=== PATIENT | female | born 1950 | race Caucasian/White ===

== ENCOUNTER → 2017-10-02 07:09 | Outpatient (CLI) | payer OTHER, SELFPAY ==
[2017-10-02 07:39] LABS: BUN Creatinine Ratio 24.3 (6-22); Blood Urea Nitrogen 17 mg/dL (7-17); Calcium 9.3 mg/dL (8.4-10.2); Carbon Dioxide 26 mmol/L (22-32); Chloride 106 mmol/L (98-107); Cholesterol 236 mg/dL (140-199); Estimated Glomerular Filt Rate > 60.0 mL/min (>60); Glucose 94 mg/dL (80-110); HDL Cholesterol 59 mg/dL (40-60); HEMOLYSIS 16 (0-50); LDL Cholesterol Calculated 156 mg/dL (<100); Potassium 4.1 mmol/L (3.4-5.1); Sodium 145 mmol/L (137-145); Triglycerides 105 mg/dL (35-150)
[2017-10-02 08:11] LABS: TSH w/ Reflex to FT4 0.84 uIU/mL (0.47-4.68)
== END ==
PROVIDERS: PCP Family Medicine; Visit Provider Family Medicine
DX: M85.80 Other specified disorders of bone density and structure, unspecified site (principal); E03.9 Hypothyroidism, unspecified
CPT/HCPCS: 36415; 80048; 80061; 84443

== ENCOUNTER 2018-01-19 13:03 | Emergency (ER) | payer OTHER, SELFPAY ==
[2018-01-19] VITALS (17 sets, daily range): BP systolic 138–216; BP diastolic 60–107; PULSE 62–82; RESP 15–21; TEMP 36.8; O2SAT 95–100; BMI 25.7
--- NOTE | 2018-01-19 13:12 | ED_ITS ---
HPI - Chest Pain General Chief Complaint: Chest Pain Stated Complaint: elevated blood pressure Time Seen by Provider: 01/19/18 13:11 Source: patient Mode of arrival: ambulatory Limitations: no limitations History of Present Illness HPI narrative: Patient is an otherwise healthy 67-year-old female here for evaluation of not feeling well. She also complains of a chest fullness. Also complaining of an episode of what she thought was going to be tunnel vision. She had no loss of consciousness. She also has a small vague headache. All of her symptoms started this morning. She has not tried anything for prior to arrival. She is hypothyroid and has not had a change in her Synthroid. Patient denies a history of hypertension. Related Data Previous Rx's Medication Instructions Recorded levothyroxine [Synthroid] 88 mcg PO QAM #90 tab 11/24/17 Allergies Allergy/AdvReac Type Severity Reaction Status Date / Time wheat Allergy Mild GI UPSET, Verified 01/19/18 13:11 FACIAL SWELLING codeine AdvReac Intermediate SYNCOPE Verified 01/19/18 13:11 Review of Systems Constitutional Reports fatigue, Denies fever(s), Reports headache(s) and Reports lethargy Eyes Reports blurry vision, Reports change in vision, Denies loss of vision, Denies photophobia, Denies spots in vision and Reports tunnel vision ENT Ears, Nose, Mouth, and Throat: Denies vertigo, Denies dizziness, Reports headache(s), Denies hoarseness, Denies lip swelling and Denies disequilibrium Cardiovascular Denies chest pain, Denies chest pain with activity, Denies syncope, Denies rapid heart rate, Denies edema, Denies palpitations and Denies dyspnea Comments: Chest fullness Respiratory Denies cough and Denies dyspnea Gastrointestinal Gastrointestinal: Denies abdominal pain, Denies diarrhea, Denies nausea and Denies vomiting Musculoskeletal Denies abnormal gait, Denies myalgias and Denies arthralgias Integumentary/Breasts Denies lesions and Denies rash Neurologic Denies abnormal speech, Denies abnormal gait, Denies confusion, Denies vertigo, Denies dizziness, Denies syncope, Reports headache(s), Denies focal weakness, Denies loss of vision, Denies sensory deficit, Denies paresthesias and Denies disequilibrium Psychiatric Denies confusion Endocrine Reports fatigue and Denies palpitations Hematologic/Lymphatic Denies easy bleeding and Denies easy bruising Allergic/Immunologic Denies lip swelling [facility] Medical History Osteopenia after menopause (Chronic) Tinnitus (Chronic 1974) Osteoarthritis (Chronic 11/11/04) Meniere's disease, unspecified (Chronic 08/07/14) Sensorineural hearing loss, unspecified (Chronic 02/13/12) Tubular adenoma of colon (Resolved 12/26/14) Acquired hypothyroidism (Chronic 01/25/15) Actinic keratosis of right cheek (Resolved 01/25/15) Atrophic vulvovaginitis (Chronic 01/25/15) Actinic keratosis treated with topical fluorouracil (5FU) (Resolved 09/27/15) Migraines (Chronic ~1974) Seasonal affective disorder (Chronic ~1974) Actinic keratosis (Resolved 1966) Chicken pox (Resolved ~1954) Foot fracture (Resolved 1961) Measles (Resolved ~1956) [place] fever (Resolved ~1958) Surgical History Anesthesia (Resolved) Status post biopsy (Resolved 12/26/14) Status post colonoscopy (Resolved 12/26/14) Family History Sister Age: 70 Breast cancer Father No problems noted. Grandmother No problems noted. Mother Colon cancer Grandfather No problems noted. Grandmother No problems noted. Social History Smoking Status: Never smoker Exam Initial Vital Signs Initial Vital Signs: Vital Signs Temperature 98.3 F 01/19/18 13:11 Pulse Rate 78 01/19/18 13:11 Respiratory Rate 20 01/19/18 13:11 Blood Pressure 216/92 H 01/19/18 13:11 Pulse Oximetry 100 01/19/18 13:11 Const General: cooperative, healthy appearing, comfortable, well developed, well groomed and No acute distress Orientation: alert, awake and oriented x3 HENMT Head: normal to inspection and normocephalic Ears: hearing grossly normal bilaterally Nose: external nose normal Resp Effort & Inspection: normal respiratory effort Auscultation: clear to auscultation bilaterally Cardio Rate: regular rate Rhythm: regular rhythm Pulses: radial pulses not present GI Inspection: non-distended Palpation: soft, No firm and No tender Back/Spine/Pelvis Back: No CVA tenderness Cervical Spine: cervical ROM normal and No pain with cervical ROM Thoracic/Lumbar Spine: thoracic and lumbar spine normal to inspection Skin Lesions: no lesions Rashes: no rashes Neuro General: alert, awake and oriented x3 Cranial Nerves: CN's II-XI intact bilaterally Cognition: normal cognition Speech: speech normal Motor: muscle tone normal throughout Sensory Exam: no sensory deficits noted Extrem General: normal to inspection and capillary refill normal Psych Appearance: grossly normal and well kempt Course Orders Ordered: ED Orders 01/19/18 13:05 EKG-12 Lead Stat 01/19/18 13:13 XR chest 1V Stat 01/19/18 13:36 B Type Natriuretic Peptide Stat Complete Blood Count AUTO DIFF Stat Comprehensive Metabolic Panel Stat Lipase Stat Partial Thromboplastin Time Stat Prothrombin Time INR Stat Troponin & CK Cardiac Panel Stat 01/19/18 14:01 CT angio chest PE protocol Stat CT head/brain wo con Stat 01/19/18 15:31 EKG-12 Lead Stat 01/19/18 15:43 Troponin I Stat Discontinued Medications Aspirin (Aspirin Chew) 324 mg PO NOW ONE Stop: 01/19/18 13:14 Last Admin: 01/19/18 13:41 Dose: Not Given Aspirin (Aspirin Chew) 324 mg PO NOW ONE Stop: 01/19/18 13:14 Last Admin: 01/19/18 14:55 Dose: 324 mg Nitroglycerin (Nitrostat) 0.4 mg SL [id number] PRN PRN Reason: Chest Pain Last Admin: 01/19/18 14:27 Dose: 0.4 mg Admin: 01/19/18 14:00 Dose: 0.4 mg Admin: 01/19/18 13:45 Dose: 0.4 mg Vital Signs - 8 hr 01/19/18 13:11 01/19/18 13:45 01/19/18 13:54 Temperature 98.3 F Pulse Rate 78 65 65 Respiratory Rate 20 16 Blood Pressure 216/92 H 201/107 H Blood Pressure [Left Wrist] 201/105 H Pulse Oximetry 100 100 01/19/18 13:57 01/19/18 14:00 01/19/18 14:25 Temperature Pulse Rate 68 62 65 Respiratory Rate Blood Pressure 153/64 H 153/64 H 154/60 H Blood Pressure [Left Wrist] Pulse Oximetry 01/19/18 14:27 01/19/18 14:51 01/19/18 15:04 Temperature Pulse Rate 63 65 68 Respiratory Rate 18 Blood Pressure 153/93 H 138/78 Blood Pressure [Left Wrist] 138/68 Pulse Oximetry 100 01/19/18 15:30 01/19/18 16:28 01/19/18 17:10 Temperature Pulse Rate 70 65 80 Respiratory Rate 15 16 15 Blood Pressure Blood Pressure [Left Wrist] 140/81 152/70 H 193/86 H Pulse Oximetry 100 100 100 01/19/18 17:30 Temperature Pulse Rate 74 Respiratory Rate 15 Blood Pressure Blood Pressure [Left Wrist] 172/88 H Pulse Oximetry 100 MDM - Chest Pain Lab Data Attestation: I reviewed the patient's lab results. Result diagrams: 01/19/18 13:36 01/19/18 13:36 Lab Results 01/19/18 01/19/18 01/19/18 Range/Units 13:36 13:36 13:36 WBC 6.1 (4.5-11.0) X10^3/uL RBC 4.91 (4.0-5.2) X10^6/uL Hgb 15.2 (12.0-16.0) g/dL Hct 43.9 (36-46) % MCV 89.3 (80-100) fL MCH 30.9 (26-34) PG MCHC 34.6 (30-36) % RDW 12.9 (11.6-14.8) % Plt Count 201 (150-400) X10^3/uL Neut % (Auto) 62.9 (50-75) % Lymph % (Auto) 28.6 (25-40) % Benzie % (Auto) 5.6 (3-14) % Eos % (Auto) 1.8 L (2-4) % Baso % (Auto) 1.1 (0-2) % Neut # (Auto) 3800 (8791-4885) /uL PT 10.4 (10.1-12.7) SECONDS INR 1.0 (0.9-1.3) APTT 28 (26.4-36.2) SECONDS Sodium 144 (137-145) mmol/L Potassium 4.0 (3.4-5.1) mmol/L Chloride 106 (98-107) mmol/L Carbon Dioxide 27 (22-32) mmol/L BUN 18 H (7-17) mg/dL Creatinine 0.90 (0.52-1.04) mg/dL Estimated GFR > 60.0 (>60) mL/min BUN/Creatinine Ratio 20.0 (6-22) Glucose 92 (80-110) mg/dL Calcium 9.8 (8.4-10.2) mg/dL Total Bilirubin 0.4 (0.2-1.3) mg/dL AST 31 (14-36) IU/L ALT 29 (9-52) IU/L Alkaline Phosphatase 64 (38-126) U/L Total Creatine Kinase 74 (30-135) U/L CK-MB (CK-2) TNP CK-MB (CK-2) Rel Index TNP Troponin I < 0.012 (0.01-0.034) ng/mL B-Natriuretic Peptide < 100.0 (<100) Total Protein 7.5 (6.3-8.2) g/dL Albumin 4.5 (3.5-5.0) g/dL Globulin 3.0 (1.7-4.1) g/dL Albumin/Globulin Ratio 1.5 (1.0-2.8) Lipase 96 (23-300) U/L 01/19/18 Range/Units 15:43 WBC (4.5-11.0) X10^3/uL RBC (4.0-5.2) X10^6/uL Hgb (12.0-16.0) g/dL Hct (36-46) % MCV (80-100) fL MCH (26-34) PG MCHC (30-36) % RDW (11.6-14.8) % Plt Count (150-400) X10^3/uL Neut % (Auto) (50-75) % Lymph % (Auto) (25-40) % Benzie % (Auto) (3-14) % Eos % (Auto) (2-4) % Baso % (Auto) (0-2) % Neut # (Auto) (9839-5330) /uL PT (10.1-12.7) SECONDS INR (0.9-1.3) APTT (26.4-36.2) SECONDS Sodium (137-145) mmol/L Potassium (3.4-5.1) mmol/L Chloride (98-107) mmol/L Carbon Dioxide (22-32) mmol/L BUN (7-17) mg/dL Creatinine (0.52-1.04) mg/dL Estimated GFR (>60) mL/min BUN/Creatinine Ratio (6-22) Glucose (80-110) mg/dL Calcium (8.4-10.2) mg/dL Total Bilirubin (0.2-1.3) mg/dL AST (14-36) IU/L ALT (9-52) IU/L Alkaline Phosphatase (38-126) U/L Total Creatine Kinase (30-135) U/L CK-MB (CK-2) CK-MB (CK-2) Rel Index Troponin I < 0.012 (0.01-0.034) ng/mL B-Natriuretic Peptide (<100) Total Protein (6.3-8.2) g/dL Albumin (3.5-5.0) g/dL Globulin (1.7-4.1) g/dL Albumin/Globulin Ratio (1.0-2.8) Lipase (23-300) U/L Point of Care Testing Glucose POC 84 Imaging Data Chest x-ray: Radiologist's impression: [place] [address] XRay Report Signed Patient: Bharati Cates JMR#: [id number] : 9Acct:[id number] Age/Sex: 67 / FDate of Service: 01/19/18 Loc: ED Accession Number: [id number] Procedure: XR chest 1V Ordering Provider: Michael Parker D.O. PROCEDURE: XR CHEST 1V INDICATIONS: chest pain TECHNIQUE: One view of the chest was acquired. COMPARISON: None. FINDINGS: Surgical changes and devices: None. Lungs and pleura: No pleural effusions or pneumothorax. Lungs are clear. Mediastinum: Mediastinal contours appear normal. Heart size is normal. Bones and chest wall: No suspicious bony lesions. Overlying soft tissues appear unremarkable. IMPRESSION: No acute pulmonary process. Dictated by: Meagan Marshall M.D. on 01/19/2018 at 13:54 Approved by: Meagan Marshall M.D. on 01/19/2018 at 13:54 CTA chest: Radiologist's impression: [place] [id number] CT Scan Report Signed Patient: Bharati Cates R#: [id number] : 9Acct:[id number] Age/Sex: 67 / FDate of Service: 01/19/18 Loc: ED Accession Number: [id number] Procedure: CT angio chest PE protocol Ordering Provider: Michael Parker D.O. PROCEDURE: CT ANGIO CHEST PE PROTOCOL INDICATIONS: Chest pain, shortness of breath, TECHNIQUE: After the administration of intravenous contrast, 2 mm thick sections acquired from the pulmonary apices to the posterior costophrenic angles. 3-dimensional maximum intensity projection (MIP) coronal and sagittal reformats were then acquired through the thorax. For radiation dose reduction, the following was used: automated exposure control, adjustment of mA and/or kV according to patient size. COMPARISON: None. FINDINGS: Image quality: Excellent. Pulmonary arteries: Pulmonary arteries are normal in size, and demonstrate no intraluminal filling defects to suggest central pulmonary embolism. Lungs and pleura: Atelectasis noted in the dependent portion of the lung bases. Lungs are otherwise clear. No pleural effusions or pneumothorax. Central and peripheral airways are patent. Mediastinum: Heart size is normal, without pericardial effusion. No mediastinal or hilar adenopathy. Thoracic aorta is normal in caliber and enhancement. Esophagus is normal in caliber. Small hiatal hernia. Bones and chest wall: No suspicious bony lesions. Ribs and thoracic spine appear intact throughout. Spine degenerative disc disease and facet arthropathy.No axillary or supraclavicular adenopathy. Abdomen: Visualized upper abdominal solid organs appear normal in the early arterial phase of enhancement. IMPRESSION: 1. No pulmonary embolus. 2. No lung consolidation. 3. No pleural effusions. Dictated by: Chelita Lerner MD, PhD on 01/19/2018 at 14:17 Approved by: Chelita Lerner MD, PhD on 01/19/2018 at 14:23 CT scan - head: Radiologist's impression: [address] [address] [address] Scan Report Signed Patient: Bharati Cates R#: [id number] : 9Acct:[id number] Age/Sex: 67 / FDate of Service: 01/19/18 Loc: ED Accession Number: [id number] Procedure: CT head/brain wo con Ordering Provider: Michael Parker D.O. PROCEDURE: CT HEAD/BRAIN WO CON INDICATIONS: vision changes TECHNIQUE: Noncontrast 4.5 mm thick angled axial sections acquired from the foramen magnum to the vertex, with coronal and sagittal reformats. For radiation dose reduction, the following was used: automated exposure control, adjustment of mA and/or kV according to patient size. COMPARISON: None. FINDINGS: Image quality: Excellent. CSF spaces: Basal cisterns are patent. No extra-axial fluid collections. The ventricles are symmetric in size and shape. Brain: No intracranial bleeds or masses. There is cerebral volume loss for age , with resultant ventricular and sulcal prominence. There are periventricular and deep white matter chronic small vessel ischemic changes. Hypodensity noted in the anterior limb of the right internal capsule There is intracranial internal carotid artery and vertebral artery atherosclerosis. Skull and face: Calvarium and visualized facial bones appear intact, without suspicious lesions. Sinuses: Visualized sinuses and mastoids are clear. IMPRESSION: 1. Small hypodensity in the anterior limb of the right internal capsule compatible with subacute versus chronic lacunar infarct. Recommend MRI of the brain for further evaluation when clinically feasible. 2. No intracranial hemorrhage. Dictated by: Chelita Lerner MD, PhD on 01/19/2018 at 14:12 Approved by: Chelita Lerner MD, PhD on 01/19/2018 at 14:17 ECG Data Attestation: I personally reviewed and interpreted this ECG as follows: Prior ECG tracings: not available for review Interpretation: EKG time 1309 hr Sinus rhythm Ventricular rate is [address] depression V4 V5 V6 Normal QRS EKG timed 1538 hr Patient asymptomatic Sinus rhythm Ventricular rate is 61 Left axis deviation No ST T wave changes MDM Narrative Medical decision making narrative: Patient arrived hypertension. She has never had hypertension before. She also was complaining of vision disturbances. There was no objective neurologic findings on her exam. She was given an aspirin. She was given 3 sublingual nitros which decreased her hypertension which seemed to resolve all of her symptoms except for very minor headache and ? blurry? vision. She did initially have ST depressions laterally which resolved when her symptoms resolved. Initial troponin was negative. Repeat troponin was negative. Head CT has a density which could be subacute versus chronic. Given the fact that her symptoms have almost completely resolved she is not a tPA candidate. I discussed the case with Malcolm who found an accepting physician at [facility]. Accepting physician is . I did not specifically talk with the admitting provider regarding this patient. Patient was informed of the need for transport to obtain an MRI of her head and also further provocative testing of her heart. The patient expressed understanding and agreement. Patient is stable for transport. Discharge Plan Departure Patient Disposition: [facility] Clinical Impression: Hypertension, Atypical chest pain, Blurring of vision, Headache Prescriptions: No Action levothyroxine [Synthroid] 88 mcg tablet 88 mcg PO QAM Qty: 90 RF: 3
[2018-01-19 13:42] LABS: Add Manual Diff / Slide Review NO; Basophils Percent Auto 1.1 % (0-2); Eosinophils Percent Auto 1.8 % (2-4); Hematocrit 43.9 % (36-46); Hemoglobin 15.2 g/dL (12.0-16.0); Lymphocytes Percent Auto 28.6 % (25-40); Mean Corpuscular HGB Conc 34.6 % (30-36); Mean Corpuscular Hemoglobin 30.9 PG (26-34); Mean Corpuscular Volume 89.3 fL (80-100); Monocytes Percent Auto 5.6 % (3-14); Neutrophils Absolute Auto 3800 /uL (3000-5900); Neutrophils Percent Auto 62.9 % (50-75); Platelet Count 201 X10^3/uL (150-400); Red Blood Cell Count 4.91 X10^6/uL (4.0-5.2); Red Cell Distribution Width 12.9 % (11.6-14.8); White Blood Cell Count 6.1 X10^3/uL (4.5-11.0)
[2018-01-19] MEDS: NITROGLYCERIN 0.4 MG SL TAB SL ×3 (13:45→14:27)
[2018-01-19 13:49] LABS: Prothrombin Time 10.4 SECONDS (10.1-12.7)
[2018-01-19 13:51] LABS: PTT Partial Thromboplastin Tim 28 SECONDS (26.4-36.2)
--- NOTE | 2018-01-19 13:53 | PC.NURSE ---
Patient also c/o headache with nearing vision;
[2018-01-19 13:56] LABS: Alanine Aminotransferase 29 IU/L (9-52); Albumin 4.5 g/dL (3.5-5.0); Albumin Globulin Ratio 1.5 (1.0-2.8); Alkaline Phosphatase 64 U/L (38-126); Aspartate Aminotransferase 31 IU/L (14-36); Bilirubin Total 0.4 mg/dL (0.2-1.3); Blood Urea Nitrogen 18 mg/dL (7-17); Calcium 9.8 mg/dL (8.4-10.2); Carbon Dioxide 27 mmol/L (22-32); Chloride 106 mmol/L (98-107); Creatine Kinase 74 U/L (30-135); Estimated Glomerular Filt Rate > 60.0 mL/min (>60); Glucose 92 mg/dL (80-110); HEMOLYSIS < 15 (0-50); Lipase 96 U/L (23-300); Sodium 144 mmol/L (137-145); Total Protein 7.5 g/dL (6.3-8.2)
--- NOTE | 2018-01-19 14:01 | DI.CT.S_ITS ---
PROCEDURE: CT HEAD/BRAIN WO CON INDICATIONS: vision changes TECHNIQUE: Noncontrast 4.5 mm thick angled axial sections acquired from the foramen magnum to the vertex, with coronal and sagittal reformats. For radiation dose reduction, the following was used: automated exposure control, adjustment of mA and/or kV according to patient size. COMPARISON: None. FINDINGS: Image quality: Excellent. CSF spaces: Basal cisterns are patent. No extra-axial fluid collections. The ventricles are symmetric in size and shape. Brain: No intracranial bleeds or masses. There is cerebral volume loss for age, with resultant ventricular and sulcal prominence. There are periventricular and deep white matter chronic small vessel ischemic changes. Hypodensity noted in the anterior limb of the right internal capsule There is intracranial internal carotid artery and vertebral artery atherosclerosis. Skull and face: Calvarium and visualized facial bones appear intact, without suspicious lesions. Sinuses: Visualized sinuses and mastoids are clear. IMPRESSION: 1. Small hypodensity in the anterior limb of the right internal capsule compatible with subacute versus chronic lacunar infarct. Recommend MRI of the brain for further evaluation when clinically feasible. 2. No intracranial hemorrhage. Dictated by: Chelita Lerner MD, PhD on 01/19/2018 at 14:12 Approved by: Chelita Lerner MD, PhD on 01/19/2018 at 14:17
--- NOTE | 2018-01-19 14:01 | DI.CT.S_ITS ---
PROCEDURE: CT ANGIO CHEST PE PROTOCOL INDICATIONS: Chest pain, shortness of breath, TECHNIQUE: After the administration of intravenous contrast, 2 mm thick sections acquired from the pulmonary apices to the posterior costophrenic angles. 3-dimensional maximum intensity projection (MIP) coronal and sagittal reformats were then acquired through the thorax. For radiation dose reduction, the following was used: automated exposure control, adjustment of mA and/or kV according to patient size. COMPARISON: None. FINDINGS: Image quality: Excellent. Pulmonary arteries: Pulmonary arteries are normal in size, and demonstrate no intraluminal filling defects to suggest central pulmonary embolism. Lungs and pleura: Atelectasis noted in the dependent portion of the lung bases. Lungs are otherwise clear. No pleural effusions or pneumothorax. Central and peripheral airways are patent. Mediastinum: Heart size is normal, without pericardial effusion. No mediastinal or hilar adenopathy. Thoracic aorta is normal in caliber and enhancement. Esophagus is normal in caliber. Small hiatal hernia. Bones and chest wall: No suspicious bony lesions. Ribs and thoracic spine appear intact throughout. Spine degenerative disc disease and facet arthropathy.No axillary or supraclavicular adenopathy. Abdomen: Visualized upper abdominal solid organs appear normal in the early arterial phase of enhancement. IMPRESSION: 1. No pulmonary embolus. 2. No lung consolidation. 3. No pleural effusions. Dictated by: Chelita Lerner MD, PhD on 01/19/2018 at 14:17 Approved by: Chelita Lerner MD, PhD on 01/19/2018 at 14:23
[2018-01-19 14:08] LABS: B Type Natriuretic Peptide < 100.0 (<100)
[2018-01-19 14:09] LABS: Troponin I < 0.012 ng/mL (0.01-0.034)
[2018-01-19] MEDS: ASPIRIN 81 MG TAB 324 MG PO (14:55)
--- NOTE | 2018-01-19 15:03 | PC.NURSE ---
Continued to have nearing vision and mild blurred vision;
[2018-01-19 16:13] LABS: Troponin I < 0.012 ng/mL (0.01-0.034)
--- NOTE | 2018-01-19 18:39 | PC.NURSE ---
Blurred vision; Left sided headache;
== END 2018-01-19 21:53 | disposition short-term general hospital (02) ==
PROVIDERS: Emergency Provider Emergency Medicine; Family Provider Family Medicine; PCP Family Medicine
DX: I10 Essential (primary) hypertension (principal); H53.8 Other visual disturbances; R07.89 Other chest pain; R51 Headache
CPT/HCPCS: 36415; 70450; 71045; 71275; 80053; 82550; 82962; 83690; 83880; 84484; 85025; 85610; 85730; 93005; 99285; 99291; Q9967

== ENCOUNTER → 2018-10-26 07:36 | Outpatient (CLI) | payer OTHER, SELFPAY ==
[2018-10-26 08:32] LABS: Alanine Aminotransferase 22 IU/L (9-52); Albumin 4.2 g/dL (3.5-5.0); Albumin Globulin Ratio 1.4 (1.0-2.8); Alkaline Phosphatase 65 U/L (38-126); Aspartate Aminotransferase 29 IU/L (14-36); BUN Creatinine Ratio 22.9 (6-22); Bilirubin Total 0.6 mg/dL (0.2-1.3); Blood Urea Nitrogen 16 mg/dL (7-17); Calcium 9.5 mg/dL (8.4-10.2); Carbon Dioxide 28 mmol/L (22-32); Chloride 107 mmol/L (98-107); Cholesterol 186 mg/dL (140-199); Estimated Glomerular Filt Rate > 60.0 mL/min (>60); Globulin 2.9 g/dL (1.7-4.1); Glucose 92 mg/dL (80-110); HDL Cholesterol 53 mg/dL (40-60); HEMOLYSIS < 15 (0-50); LDL Cholesterol Calculated 110 mg/dL (<100); Potassium 4.1 mmol/L (3.4-5.1); Sodium 142 mmol/L (137-145); Total Protein 7.1 g/dL (6.3-8.2); Triglycerides 116 mg/dL (35-150)
[2018-10-26 09:31] LABS: TSH w/ Reflex to FT4 0.09 uIU/mL (0.47-4.68)
[2018-10-26 10:09] LABS: Free T4, Direct Thyroxine 1.22 ng/dL (0.78-2.19)
[2018-10-30 14:54] LABS: Calcium 9.6 mg/dL (8.6-10.4); Parathyroid Hormone, Intact 55 pg/mL (14-64)
== END ==
PROVIDERS: PCP Family Medicine; Visit Provider Family Medicine
DX: Z84.89 Family history of other specified conditions (principal); E78.5 Hyperlipidemia, unspecified; E03.9 Hypothyroidism, unspecified
CPT/HCPCS: 36415; 80053; 80061; 83970; 84439; 84443

== ENCOUNTER → 2018-11-03 14:36 | Outpatient (CLI) | payer OTHER, SELFPAY ==
--- NOTE | 2018-11-03 14:38 | DI.MG.S_ITS ---
BILATERAL DIGITAL SCREENING MAMMOGRAM 3D/2D WITH CAD: 11/03/2018 CLINICAL: Routine screening. Family history of breast cancer. Comparison is made to exams dated: 10/22/2016 mammogram, 10/22/2015 mammogram, and 09/07/2008 mammogram - [facility]. The tissue of both breasts is extremely dense, which lowers the sensitivity of mammography. Current study was also evaluated with a Computer Aided Detection (CAD) system. No significant masses, calcifications, or other findings are seen in either breast. There has been no significant interval change. IMPRESSION: NEGATIVE There is no mammographic evidence of malignancy. A 1 year screening mammogram is recommended. This exam was interpreted at Station ID: [id number]. NOTE: For mammograms, a report in lay terms will be sent to the patient. Approximately 15% of breast malignancies will not be visualized mammographically. In the management of a palpable breast mass, a negative mammogram must not discourage biopsy of a clinically suspicious lesion. Electronically Signed By: Serina barcenas/jonathan:11/03/2018 15:51:03 letter sent: Normal Exam ACR BI-RADS Category 1: Negative [id number]
== END ==
PROVIDERS: PCP Family Medicine; Visit Provider Family Medicine
DX: Z12.31 Encounter for screening mammogram for malignant neoplasm of breast (principal); M85.851 Other specified disorders of bone density and structure, right thigh; Z78.0 Asymptomatic menopausal state; E07.9 Disorder of thyroid, unspecified; Z80.3 Family history of malignant neoplasm of breast
CPT/HCPCS: 77063; 77067; 77080

== ENCOUNTER → 2019-10-06 07:59 | Outpatient (CLI) | payer OTHER, SELFPAY ==
[2019-10-06 09:00] LABS: Alanine Aminotransferase 23 IU/L (<35); Albumin 4.5 g/dL (3.5-5.0); Albumin Globulin Ratio 1.5 (1.0-2.8); Alkaline Phosphatase 71 U/L (38-126); Aspartate Aminotransferase 31 IU/L (14-36); BUN Creatinine Ratio 23.5 (6-22); Bilirubin Total 0.5 mg/dL (0.2-1.3); Blood Urea Nitrogen 19 mg/dL (7-17); Calcium 9.4 mg/dL (8.4-10.2); Carbon Dioxide 24 mmol/L (22-32); Chloride 108 mmol/L (98-107); Cholesterol 189 mg/dL (140-199); Estimated Glomerular Filt Rate > 60.0 mL/min (>60); Glucose 100 mg/dL (80-110); HDL Cholesterol 57 mg/dL (40-60); HEMOLYSIS 16 (0-50); LDL Cholesterol Calculated 110 mg/dL (<100); Potassium 4.3 mmol/L (3.4-5.1); Sodium 139 mmol/L (137-145); Total Protein 7.5 g/dL (6.3-8.2); Triglycerides 108 mg/dL (35-150)
[2019-10-06 09:56] LABS: Free T3, Triiodothyronine Free 2.98 pg/mL (2.77-5.27); Free T4, Direct Thyroxine 1.23 ng/dL (0.78-2.19)
[2019-10-06 10:09] LABS: Thyroid Stimulating Hormone 1.83 uIU/mL (0.47-4.68)
== END ==
PROVIDERS: PCP Family Medicine; Referring Provider Family Medicine; Visit Provider Family Medicine
DX: E03.9 Hypothyroidism, unspecified (principal); E78.5 Hyperlipidemia, unspecified; I10 Essential (primary) hypertension
CPT/HCPCS: 36415; 80053; 80061; 84439; 84443; 84481

== ENCOUNTER → 2019-12-02 17:11 | Outpatient (CLI) | payer OTHER, SELFPAY ==
[2019-12-02 18:30] LABS: C-Reactive Protein Quant < 0.5 mg/dL (<1.0)
[2019-12-02 18:36] LABS: Erythrocyte Sedimentation Rate 4 MM/HR (0-20)
== END ==
PROVIDERS: PCP Family Medicine; Referring Provider Family Medicine; Visit Provider Family Medicine
DX: G45.3 Amaurosis fugax (principal)
CPT/HCPCS: 36415; 85651; 86140

== ENCOUNTER → 2019-12-29 08:12 | Outpatient (CLI) | payer OTHER, SELFPAY ==
--- NOTE | 2019-12-29 08:15 | DI.US.S_ITS ---
PROCEDURE: US CAROTID DOPPLER BI INDICATIONS: DIZZINESS TECHNIQUE: Color and pulse Doppler interrogation was performed of both carotid systems, with image documentation and velocity measurements. COMPARISON: None. FINDINGS: Stenosis calculations are based on SRU (Society of Radiologists in Ultrasound) criteria. The flow velocities and the arterial waveforms are normal within both carotid arterial systems. Atherosclerotic plaque is seen on both sides. The estimated degree of internal carotid artery stenosis is less than 50%. Antegrade flow is confirmed within both vertebral arteries. IMPRESSION: No hemodynamically significant stenosis is seen. Dictated by: Praneeth Morin M.D. on 12/29/2019 at 8:50 Approved by: Praneeth Morin M.D. on 12/29/2019 at 8:50
== END ==
PROVIDERS: PCP Family Medicine; Referring Provider Family Medicine; Visit Provider Family Medicine
DX: G45.3 Amaurosis fugax (principal); R42 Dizziness and giddiness
CPT/HCPCS: 93880

== ENCOUNTER → 2020-01-20 08:03 | Outpatient (CLI) | payer OTHER, SELFPAY ==
--- NOTE | 2020-01-20 08:05 | DI.MRI.S_ITS ---
PROCEDURE: MR BRAIN (IAC) WWO CON INDICATIONS: vision loss, tia? TECHNIQUE: Noncontrast sagittal T1 spin echo, axial FLAIR, axial gradient echo, axial diffusion and ADC through the brain. Axial thin-slice 3D CISS, coronal TruFISP, axial T1 spin echo with fat saturation through the internal auditory canals. After the administration of contrast, thin slice axial and coronal T1 spin echo with fat saturation through the internal auditory canals, and axial T1 spin echo with fat saturation through the brain. COMPARISON: None. FINDINGS: Image quality: Excellent. Cerebellopontine angles: No cerebellopontine angle masses. Inner ear structures appear normally formed. No suspicious enhancement in the internal auditory canal or along the course of the 7th cranial nerve. CSF spaces: Ventricles are normal in size and shape. No extra-axial fluid collections. Basal cisterns are patent. There is mild, diffuse cerebral volume loss. There are mild periventricular and subcortical white matter chronic microvascular ischemic changes. Brain: No intracranial bleeds or mass effects. Camejo-white matter interface is intact. No abnormal intracranial enhancement. Diffusion weighted images demonstrate no acute ischemic insults. Brainstem appears normal. Normal intravascular flow voids are present. Skull and face: Calvarial marrow signal is normal. Orbits appear normal. Sinuses: Sinuses and mastoids are clear. IMPRESSION: 1. No evidence of vestibular schwannoma. 2. No acute intracranial disease process. 3. No areas of acute or chronic infarction. 4. Mild, diffuse cerebral volume loss. 5. Mild periventricular and subcortical white matter chronic microvascular ischemic changes. Dictated by: Chelita Lerner MD, PhD on 01/20/2020 at 11:42 Approved by: Chelita Lerner MD, PhD on 01/20/2020 at 11:52
== END ==
PROVIDERS: PCP Family Medicine; Referring Provider Family Medicine; Visit Provider Family Medicine
DX: G45.3 Amaurosis fugax (principal)
CPT/HCPCS: 70553

== ENCOUNTER → 2020-09-13 07:46 | Outpatient (CLI) | payer MEDICARE, OTHER, SELFPAY ==
[2020-09-13 08:12] LABS: Add Manual Diff / Slide Review NO; Basophils Absolute Auto 0 /uL (0-100); Basophils Percent Auto 0.8 % (0-2); Eosinophils Absolute Auto 200 /uL (0-450); Eosinophils Percent Auto 3.3 % (2-4); Lymphocytes Absolute Auto 1800 /uL (1100-4500); Lymphocytes Percent Auto 29.7 % (25-40); Mean Corpuscular HGB Conc 33.2 % (30-36); Mean Corpuscular Hemoglobin 30.5 PG (26-34); Mean Corpuscular Volume 91.8 fL (80-100); Monocytes Absolute Auto 400 /uL (0-900); Monocytes Percent Auto 6.3 % (3-14); Neutrophils Absolute Auto 3600 /uL (1500-7000); Neutrophils Percent Auto 59.9 % (50-75); Platelet Count 182 X10^3/uL (150-400); Red Blood Cell Count 4.58 X10^6/uL (4.0-5.2); Red Cell Distribution Width 13.5 % (11.6-14.8)
[2020-09-13 08:25] LABS: Alanine Aminotransferase 28 IU/L (<35); Albumin 4.2 g/dL (3.5-5.0); Albumin Globulin Ratio 1.5 (1.0-2.8); Alkaline Phosphatase 78 U/L (38-126); Aspartate Aminotransferase 38 IU/L (14-36); BUN Creatinine Ratio 26.3 (6-22); Bilirubin Total 0.4 mg/dL (0.2-1.3); Blood Urea Nitrogen 20 mg/dL (7-17); Calcium 9.5 mg/dL (8.4-10.2); Carbon Dioxide 27 mmol/L (22-32); Chloride 107 mmol/L (98-107); Estimated Glomerular Filt Rate > 60.0 mL/min (>60); Globulin 2.8 g/dL (1.7-4.1); Glucose 95 mg/dL (80-110); HEMOLYSIS < 15 (0-50); Potassium 4.4 mmol/L (3.4-5.1); Sodium 141 mmol/L (137-145)
[2020-09-13 08:55] LABS: TSH w/ Reflex to FT4 2.05 uIU/mL (0.47-4.68)
== END ==
PROVIDERS: PCP Family Medicine; Referring Provider Family Medicine; Visit Provider Family Medicine
DX: E03.9 Hypothyroidism, unspecified (principal); E78.5 Hyperlipidemia, unspecified; I10 Essential (primary) hypertension; R55 Syncope and collapse
CPT/HCPCS: 36415; 80053; 84443; 85025

== ENCOUNTER → 2020-09-19 09:37 | Outpatient (CLI) | payer MEDICARE, OTHER, SELFPAY ==
--- NOTE | 2020-10-24 09:57 | P.HOLT.S_ITS ---
[employer] Report Referral & Results Date Patient Seen: 09/19/20 Requesting provider: Essence Jha Indication: Syncope Duration of monitoring (days): 13 Diary information: There were 6 patient triggered events and 2 patient diary entries Patient triggered events were associated with (within 45 seconds) sinus rhythm, PACs, and SVT Patient diary events were associated with (within 45 seconds) sinus rhythm and SVT Data: Minimum sinus heart rate was 49 beats per minute at 03:53 on 09/29/2020 Maximum sinus heart rate was 125 beats per minute at 11:09 on 09/20/2020 Maximum overall heart rate was 182 beats per minute at 07:39 on 09/24/2020 during a 6 beat run of SVT Less than 1% of identified beats were ventricular or supraventricular ectopic in origin, which would classify them as rare. 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
== END ==
PROVIDERS: PCP Family Medicine; Referring Provider Family Medicine; Visit Provider Family Medicine
DX: R55 Syncope and collapse (principal)
CPT/HCPCS: 93246; 93248

== ENCOUNTER 2020-09-28 09:38 | Emergency (ER) | payer MEDICARE, OTHER, SELFPAY ==
[2020-09-28 09:47] VITALS: BP 196/92; PULSE 88; RESP 16; TEMP 36.9; O2SAT 100; BMI 25.0
--- NOTE | 2020-09-28 09:58 | ED_ITS ---
HPI - Extremity Injury (Lower) General Chief Complaint: Extremity Injury, Lower Stated Complaint: left leg swelling with pain Time Seen by Provider: 09/28/20 09:43 Source: patient Mode of arrival: Ambulatory Limitations: no limitations History of Present Illness HPI Narrative: Patient is a 70-year-old female who is here for evaluation of pain along her left calf for the past 4 days and swelling along her left ankle for the past 24 hours. Chest pain. No shortness of breath. She is wearing a Holter monitor secondary to prior issues with palpitations. She has never had a blood clot the past. She denies any trauma. Related Data Home Medications Medication Instructions Recorded Confirmed cholecalciferol (vitamin D3) 50 2,000 unit PO DAILY 01/25/18 09/10/20 mcg (2,000 unit) capsule doxylamine succinate 25 mg tablet 25 mg PO BEDTIME PRN 01/25/18 09/10/20 magnesium oxide 400 mg PO DAILY cap 01/25/18 09/10/20 vitamins-lipotropics tablet 1 tab PO DAILY 01/25/18 09/10/20 aspirin 81 mg tablet,delayed 81 mg PO DAILY 09/10/20 09/10/20 release Previous Rx's Medication Instructions Recorded tretinoin 0.05 % topical cream 1 applictn TOP BEDTIME #45 gram 02/03/20 amlodipine 5 mg tablet 5 mg PO DAILY #90 tab 05/18/20 simvastatin 5 mg tablet 5 mg PO BEDTIME #90 tab 05/21/20 levothyroxine 75 mcg tablet See Rx Instructions .ROUTE 06/25/20 .COMPLEX #180 tab Allergies Allergy/AdvReac Type Severity Reaction Status Date / Time wheat Allergy Mild GI UPSET, Verified 09/10/20 08:29 FACIAL SWELLING codeine AdvReac Intermediate SYNCOPE Verified 09/10/20 08:29 Review of Systems Constitutional Constitutional: Reports system reviewed and no additional complaints, except as documented Cardiovascular Cardiovascular: Denies chest pain and Denies dyspnea Respiratory Respiratory: Denies dyspnea Gastrointestinal Gastrointestinal: Reports system reviewed and no additional complaints, except as documented Musculoskeletal Musculoskeletal: Denies tingling Comments: Pain along the left calf and swelling along the left ankle Integumentary/Breasts Skin/Breast: Denies rash Neurologic Neurologic: Denies tingling Hematologic/Lymphatic On Anticoagulants: No Allergic/Immunologic Allergic/Immunologic: Reports system reviewed and no additional complaints, except as documented Patient History Medical History Acquired hypothyroidism (01/25/15) Actinic keratosis (1966) Actinic keratosis of right cheek (01/25/15) Actinic keratosis treated with topical fluorouracil (5FU) (09/27/15) 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) Chicken pox (~1954) Essential hypertension Family history of colon cancer Foot fracture (1961) Hyperlipidemia Measles (~1956) Meniere's disease, unspecified (08/07/14) Migraines (~1974) Osteoarthritis (11/11/04) Osteopenia after menopause [place] fever (~1958) Seasonal affective disorder (~1974) Seborrheic keratosis Sensorineural hearing loss, unspecified (02/13/12) Skin lesion Solar lentigo Sun-damaged skin Tinnitus (1974) Tubular adenoma of colon (12/26/14) Surgical History Anesthesia Status post biopsy (12/26/14) Status post colonoscopy (12/26/14) Family History (Updated 10/29/18 @ 10:49 by Essence Jha DO) Sister Age: 73 Breast cancer Parathyroid adenoma Hypercalcemia Father No problems noted. Grandmother No problems noted. Mother Colon cancer Grandfather No problems noted. Grandmother No problems noted. Social History Smoking Status: Never smoker Smoking Status: Never smoker alcohol intake frequency: a few times a week Substance Use Type: does not use Exam Initial Vital Signs Initial Vital Signs: Vital Signs Temperature 98.4 F 09/28/20 09:47 Pulse Rate 88 09/28/20 09:47 Respiratory Rate 16 09/28/20 09:47 Blood Pressure 196/92 H 09/28/20 09:47 Pulse Oximetry 100 09/28/20 09:47 Const General: cooperative and comfortable Limitations: mental status not altered HENMT Head: normal to inspection and normocephalic Cardio Pulses: dorsalis pedis present on the left Skin Lesions: no lesions Rashes: no rashes Neuro General: patient alert and patient awake Cognition: normal cognition Extrem General: capillary refill normal Other: Patient has no fullness behind the left knee. Has minimal tenderness along the left calf. Is slightly more swollen around the left ankle compared to the right Psych Appearance: grossly normal and well kempt Scores Wells' Criteria for DVT Active Cancer (Treatment within 6 months): No Bedridden recently >3 days or major surgery within 4 weeks: No Calf Swelling >3cm compared to other leg: Yes Collateral (nonvericose) superficial veins present: No Entire leg swollen: No Localized tenderness along the deep vein system: Yes Pitting edema, confined to symtomatic leg: No Paralysis, paresis, or recent plaster immobilization of ext: No Previously documented DVT: No Alternative dx to DVT as likely or more likely: No Wells' criteria for DVT: 2 Course Orders Ordered: ED Orders 09/28/20 09:59 US perip venous low extrem lt Stat Vital Signs Vital signs: Vital Signs - 8 hr 09/28/20 09:47 Temperature 98.4 F Pulse Rate 88 Respiratory Rate 16 Blood Pressure 196/92 H Pulse Oximetry 100 MDM - Extremity Injury (Lower) Imaging Data US - DVT: Radiologist's Impression: [address] [id number] ReportSigned Patient: Bharati Cates R#: [id number]: 1950cct:[id number]/Sex: 70 / FDate of Service: 09/28/20Loc: EDAccession Number: [id number] Procedure: [facility] venous low extrem lt Ordering Provider: Michael Parker D.O. PROCEDURE: US PERIP VENOUS LOW EXTREM LT INDICATIONS: PAIN TECHNIQUE: Real-time imaging, as well as color and pulse Doppler interrogation, were performed of the lower extremity deep veins from the inguinal ligament to the popliteal fossa. COMPARISON: None. FINDINGS: The common femoral, femoral and popliteal veins are normally compressible, and free of intraluminal thrombus. Color and pulse Doppler demonstrate normal phasic intraluminal flow. There is normal augmentation response to distal compression maneuver. IMPRESSION: No sonographic evidence of DVT. Dictated by: Amrik Garces M.D. on 09/28/2020 at 10:40 Approved by: Amrik Garces M.D. on 09/28/2020 at 10:41 MDM Narrative Medical decision making narrative: The ultrasound shows no signs of a DVT. She is neurovascularly intact. There is no signs of infection. I have low johnston spicion for other etiologies such as heart failure. I did have discussion with her regarding the limitations of the ultrasound that was performed here in the emergency department. Informed her that if her symptoms continue she needed to talk with her primary doctor about obtaining a vascular ultrasound that evaluates to her ankle as an outpatient. No further workup needed in the emergency department. She expressed understanding and agreement. Discharge Plan Departure Patient Disposition: Home Clinical Impression: Localized swelling of lower leg Activity Restrictions/Additional Instructions: You have no restrictions on your activities. You can consider using a compression stocking if the swelling continues or worsens. I recommend that you talk with your primary doctor about further workup to discuss the indications for a more in-depth vascular ultrasound. Return to the emergency department for any chest pain or shortness of breath or skin changes in your left leg. Prescriptions: No Action amlodipine 5 mg tablet 5 mg PO DAILY Qty: 90 RF: 3 simvastatin 5 mg tablet 5 mg PO BEDTIME Qty: 90 RF: 1 levothyroxine [Synthroid] 75 mcg tablet See Rx Instructions .ROUTE .COMPLEX Qty: 180 RF: 0 magnesium oxide 400 mg capsule 400 mg PO DAILY RF: 0 cholecalciferol (vitamin D3) 2,000 unit capsule 2,000 unit PO DAILY RF: 0 vitamins-lipotropics tablet 1 tab PO DAILY RF: 0 doxylamine succinate 25 mg tablet 25 mg PO BEDTIME PRNRF: 0 tretinoin 0.05 % cream 1 applictn TOP BEDTIME Qty: 45 RF: 0 aspirin [Adult Low Dose Aspirin] 81 mg tablet,delayed release (DR/EC) 81 mg PO DAILY RF: 0 Referrals: Essence Jha DO [Primary Care Provider] -
[2020-09-28 11:03] VITALS: BP 140/75; PULSE 77; RESP 16; O2SAT 99
== END 2020-09-28 11:04 | disposition home or self-care (01) ==
PROVIDERS: Emergency Provider Emergency Medicine; PCP Family Medicine
DX: R22.40 Localized swelling, mass and lump, unspecified lower limb (principal); R07.9 Chest pain, unspecified
CPT/HCPCS: 93971; 99283

== ENCOUNTER → 2020-10-04 07:50 | Outpatient (CLI) | payer MEDICARE, OTHER, SELFPAY ==
[2020-10-04 09:00] LABS: BUN Creatinine Ratio 23.1 (6-22); Blood Urea Nitrogen 18 mg/dL (7-17); Calcium 9.6 mg/dL (8.4-10.2); Carbon Dioxide 26 mmol/L (22-32); Chloride 105 mmol/L (98-107); Estimated Glomerular Filt Rate > 60.0 mL/min (>60); Glucose 85 mg/dL (80-110); HEMOLYSIS < 15 (0-50); Potassium 4.2 mmol/L (3.4-5.1); Sodium 140 mmol/L (137-145)
== END ==
PROVIDERS: PCP Family Medicine; Referring Provider Family Medicine; Visit Provider Family Medicine
DX: Z01.812 Encounter for preprocedural laboratory examination (principal)
CPT/HCPCS: 36415; 80048

== ENCOUNTER → 2020-10-05 08:04 | Outpatient (CLI) | payer MEDICARE, OTHER, SELFPAY ==
--- NOTE | 2020-10-05 08:06 | DI.CT.S_ITS ---
PROCEDURE: 1. CT angiography of the right lower extremity. 2. CT angiography of the left lower extremity. INDICATIONS: lower left leg pain TECHNIQUE: After the administration of intravenous contrast, 2.5 mm sections acquired from mid pelvis o the feet, with optional delayed image acquisition from the knees to the feet. 3-dimensional maximum intensity projection (MIP) coronal and sagittal reformats, and/or 3-dimensional volume rendering reformatting was then performed. For radiation dose reduction, the following was used: automated exposure control. COMPARISON: None. FINDINGS: Image quality: Excellent. Extravascular tissues: Visualized small and large bowel loops are grossly unremarkable. No adenopathy. Urinary bladder is grossly unremarkable. Right lower extremity: The distal external iliac artery is patent. Common, profunda, and superficial femoral arteries are patent. Above and below knee popliteal artery is patent. Anterior tibial artery, tibioperoneal trunk, peroneal, and posterior tibial arteries are patent. Left lower extremity: Distal external iliac artery is patent. Common, profunda, and superficial femoral arteries are patent. Above and below knee popliteal artery is patent. Anterior tibial artery, tibioperoneal trunk, peroneal, and posterior tibial arteries are patent. IMPRESSION: 1. Negative CT angiography of the right lower extremity. 2. Negative CT angiography of the left lower extremity. 3. No explanation for lower extremity pain. Dictated by: Joselyn Adan M.D. on 10/05/2020 at 9:52 Approved by: Joselyn Adan M.D. on 10/05/2020 at 9:56
== END ==
PROVIDERS: PCP Family Medicine; Referring Provider Family Medicine; Visit Provider Family Medicine
DX: R22.40 Localized swelling, mass and lump, unspecified lower limb (principal); M79.605 Pain in left leg
CPT/HCPCS: 73706

== ENCOUNTER → 2020-11-15 09:08 | Outpatient (CLI) | payer MEDICARE, OTHER, SELFPAY ==
--- NOTE | 2020-11-15 09:10 | DI.ECHO.S_ITS ---
[facility] +---------+ : : [address] : : : : [id number] : : : : Phone: [phone]+ Echocardiogram Report + + :Name: GREG BRIAN Study Date: 11/15/2020 Height: 64.5 in: :[facility] [employer] [facility] ReadingLocation: Weight: 147 lb : : Gender: Female BSA: 1.7 m2 : :: 1950 Age: 70 yrs BP: 153/87 mmHg: :Reason For Study: SVT : :Ordering Physician: GRIS, : :YISSEL Babcock Performed By: Liliana Prasad : :Referring: YISSEL LANDRY D.O. : + + Interpretation Summary The left ventricle is normal in size and wall thickness. Left ventricular systolic function appears normal without focal wall motion abnormalities. The ejection fraction is estimated to be 60-65%. Diastolic parameters suggest a relaxation abnormality of the left ventricle, consistent with probable normal filling pressures. The right ventricle is normal in size and function. The right ventricular systolic pressure is estimated to be at least 24 mmHg based on an estimated right atrial pressure of 3 mm Hg. Both atria are normal in size. There is mild aortic regurgitation. There is no other significant valvular heart disease. The aortic root is normal size. Procedure: A two-dimensional transthoracic echocardiogram with color flow and Doppler was performed. The study quality was technically adequate. There is no prior echocardiogram noted for this patient. The patient was in sinus rhythm with heart rates between 65-75 bpm during the exam. Left Ventricle: The left ventricle is normal in size and wall thickness. Left ventricular systolic function appears normal without focal wall motion abnormalities. The ejection fraction is estimated to be 60-65%. Diastolic parameters suggest a relaxation abnormality of the left ventricle, consistent with probable normal filling pressures. Right Ventricle: The right ventricle is normal in size and function. Atria: Both atria are normal in size. There is no Doppler evidence for an interatrial shunt. Mitral Valve: The mitral valve is normal in structure and function. There is trace mitral regurgitation. Aortic Valve: The aortic valve opens well. The aortic valve is trileaflet. There is no aortic valve stenosis. There is mild aortic regurgitation. Tricuspid Valve: The tricuspid valve is normal in structure and function. There is mild tricuspid regurgitation. The right ventricular systolic pressure is estimated to be at least 24 mmHg based on an estimated right atrial pressure of 3 mm Hg. Pulmonic Valve: The pulmonic valve is not well visualized. There is no pulmonic valvular regurgitation. There is no other significant valvular heart disease. Great Vessels: The aortic root is normal size. The dimensions of the ascending aorta are normal. The IVC is of normal diameter and collapses greater than 50% with a sniff. This suggests a low right atrial pressure of 3 mm Hg. Pericardium/ Pleura There is no pericardial effusion. There is no pleural effusion. MMode/2D Measurements & Calculations LVIDd: 4.5 cm LVOT diam: 2.0 cm LVIDs: 2.9 cm Ao root diam: 3.3 cm FS: 35.1 % asc Aorta Diam: 3.3 cm IVSd: 0.77 cm Ao Arch Diam (Prox Trans): 2.4 cm LVPWd: 0.89 cm LV bonds. diameter/BSA (cm/m^2): 2.6 LV sys. diameter/BSA (cm/m^2): 1.7 LA A2 area: 18.5 cm2 RA long axis: 4.9 cm LA A4 area: 14.7 cm2 RA area: 13.6 cm2 LA length (vol): 4.7 cm RA vol: 32.4 ml LA vol: 48.7 ml RA : 18.8 ml/m2 LA vol index: 28.2 ml/m2 IVC diam: 0.84 cm RVD1 (basal): 3.4 cm TAPSE: 2.2 cm Doppler Measurements & Calculations Ao V2 max: 150.0 cm/sec LVOT Max Caleb: 113.3 cm/sec Ao V2 mean: 97.5 cm/sec LV V1 max P.1 mmHg Ao max P.0 mmHg LV V1 VTI: 22.9 cm Ao mean P.3 mmHg JEWELL(I,D): 2.4 cm2 Ao V2 VTI: 30.4 cm JEWELL(V,D): 2.4 cm2 sev ratio: 0.75 JEWELL indexed to BSA (cm^2/m^2): 1.4 AI P1/2t: 590.5 msec AI dec slope: 213.4 cm/sec2 MV E max caleb: 64.3 cm/sec TR max caleb: 231.1 cm/sec MV A max caleb: 79.9 cm/sec TR max P.4 mmHg MV E/A: 0.80 PA V2 max: 86.5 cm/sec Med Peak E' Caleb: 9.4 cm/sec PA V2 mean: 63.0 cm/sec E/E' med: 6.8 PA mean P.8 mmHg Lat Peak E' Caleb: 9.6 cm/sec PA pr(Accel): 3.6 mmHg E/E' lat: 6.7 E/e' average: 6.8 MV dec time: 0.24 sec SV(LVOT): 72.9 ml Reading Physician:04:08 PM
== END ==
PROVIDERS: PCP Family Medicine; Referring Provider Family Medicine; Visit Provider Family Medicine
DX: I47.1 Supraventricular tachycardia (principal); I10 Essential (primary) hypertension; I08.2 Rheumatic disorders of both aortic and tricuspid valves
CPT/HCPCS: 93306

== ENCOUNTER → 2021-01-16 08:59 | Outpatient (CLI) | payer MEDICARE, OTHER, SELFPAY ==
[2021-01-16 10:24] LABS: COVID19 -Nasal RAPID Negative (Negative)
== END ==
PROVIDERS: PCP Family Medicine; Visit Provider Surgery
DX: Z20.822 Contact with and (suspected) exposure to COVID-19 (principal); Z01.812 Encounter for preprocedural laboratory examination
CPT/HCPCS: 87635; C9803

== ENCOUNTER 2021-01-17 11:58 | Day surgery (SDC) | payer MEDICARE, OTHER, SELFPAY ==
--- NOTE | 2021-01-17 | PATH_ITS ---
[facility] Accession Number: [id number] . 01 Material submitted: . cecum - CECUM POLYP . 02 Diagnosis: Cecal Polyp: Tubular adenoma. MRV 01/21/2021 1057 Local . 02 Electronically signed: . Becki Castellano MD, Pathologist NPI- [id number] . 01 Gross description: . CECUM POLYP: Received in formalin is 1 fragment(s) of lim, soft tissue measuring 0.3 x 0.2 x 0.2 cm submitted entirely in 1 cassette(s) /JEWELL 01/18/2021 0741 Local . 02 Pathologist provided ICD-10: K63.5, Z86.010 . 02 CPT . 640645 Performed at: 01 [facility] [address], [place], [place] [id number] MD Shreyas Salazar MD Phone: [phone] Performed at: 02 [facility] [place] [address] [place], [place] [id number] MD Lynn Saldana MD Phone: [phone]
[2021-01-17 12:20] VITALS: BP 140/80; PULSE 66; RESP 16; TEMP 36.4; O2SAT 98; BMI 25.2
[2021-01-17] MEDS: LACTATED RINGERS 1,000 ML 200 ML IV (12:41)
--- NOTE | 2021-01-17 13:07 | PM.PREOP ---
Pre-operative Note Interval Note History & Physical reviewed/Exam performed by Physician: Yes Changes to H&P: No
[2021-01-17] MEDS: fentaNYL 250 MCG/5 ML INJ IV (13:12)
[2021-01-17] MEDS: MIDAZOLAM 5 MG/5 ML VIAL IV (13:13)
[2021-01-17] MEDS: ONDANSETRON 4 MG/2 ML INJ IV (13:25)
--- NOTE | 2021-01-17 13:37 | P.OP.ENDO_ITS ---
Operative Date/Time/Diagnoses Date of procedure: 01/17/21 Time of procedure: 13:37 Pre-op diagnosis: Family history colon cancer Post-op diagnosis: same Procedure & Clinicians Study performed: Colonoscopy Same procedure as scheduled: Yes Indications: Family history of colon cancer Surgeon: David Ring Procedure Notes Procedure in detail: Medications: Conscious sedation using 5 mg IV midazolam and 100 mcg IV of fentanyl The history and physical was performed/updated and the patient is ASA class is 2. The procedure was discussed in detail with the patient. Potential risks complications including infection, bleeding, missed diagnosis, perforation, need for surgery, and were explained. Their questions were answered and informed consent was obtained. Patient was brought to the procedure room and placed standard monitoring eq uipment. The patient's vital signs were monitored continuously throughout the entire procedure. Prior to starting time-out was performed. The patient was placed in the left lateral recumbent position. Procedural sedation was administered. Examination began with a thorough inspection of the perianal area there was no evidence of fissures, fistulae, external hemorrhoids or cutaneous malignancy. The colonoscopy scope was then placed into the anal canal and was advanced to the cecum, which was identified by the ileocecal valve, the appendiceal orifice and the confluence of the taenia. The scope was then slowly withdrawn examining colon thoroughly in all directions, irrigating it of any residual stool. FINDINGS 1. 5 mm polyp in the cecum removed biopsy forceps 2. Grade 2 internal hemorrhoids The patient tolerated the procedure well. They will be discharged once criteria are met. The prep was of good/excellent quality. The withdrawl time was 6minutes. The sedation time was 24 minutes. Specimen(s): other (Cecum polyp) Complications: none Impression: Colonic polyp Post-procedure Recommendations: Colonscopy in 5 years Disposition: same day surgery
[2021-01-17 13:41] VITALS: BP 118/65; PULSE 58; RESP 16; TEMP 36.2; O2SAT 96
[2021-01-17 13:46] VITALS: BP 116/60; PULSE 57; RESP 16; O2SAT 96
[2021-01-17 13:51] VITALS: BP 117/59; PULSE 62; RESP 15; TEMP 36.1; O2SAT 99
[2021-01-17 13:56] VITALS: BP 114/58; PULSE 53; RESP 15; O2SAT 97
== END 2021-01-17 14:15 | disposition home or self-care (01) ==
PROVIDERS: PCP Family Medicine; Referring Provider Surgery; Visit Provider Surgery
PROC: 0DJD8ZZ Inspection of Lower Intestinal Tract, Via Natural or Artificial Opening Endoscopic (ICD-10-PCS; CPT 45378; principal; 2021-01-17 13:00)
DX: Z12.11 Encounter for screening for malignant neoplasm of colon (principal); D12.0 Benign neoplasm of cecum; K64.1 Second degree hemorrhoids; Z80.0 Family history of malignant neoplasm of digestive organs; E03.9 Hypothyroidism, unspecified; I10 Essential (primary) hypertension
CPT/HCPCS: 45380; 99152; 99153; J2250; J2405; J3010

== ENCOUNTER → 2021-01-25 08:18 | Outpatient (CLI) | payer MEDICARE, OTHER, SELFPAY ==
[2021-01-25 09:13] LABS: Add Manual Diff / Slide Review NO; Basophils Absolute Auto 100 /uL (0-100); Basophils Percent Auto 0.9 % (0-2); Eosinophils Absolute Auto 100 /uL (0-450); Eosinophils Percent Auto 2.3 % (2-4); Hemoglobin 14.3 g/dL (12.0-16.0); Lymphocytes Absolute Auto 2000 /uL (1100-4500); Lymphocytes Percent Auto 30.6 % (25-40); Mean Corpuscular HGB Conc 33.3 % (30-36); Mean Corpuscular Hemoglobin 30.6 PG (26-34); Mean Corpuscular Volume 91.8 fL (80-100); Monocytes Absolute Auto 400 /uL (0-900); Monocytes Percent Auto 6.7 % (3-14); Neutrophils Absolute Auto 3900 /uL (1500-7000); Neutrophils Percent Auto 59.5 % (50-75); Platelet Count 196 X10^3/uL (150-400); Red Blood Cell Count 4.68 X10^6/uL (4.0-5.2); Red Cell Distribution Width 12.8 % (11.6-14.8); White Blood Cell Count 6.5 X10^3/uL (4.5-11.0)
[2021-01-25 09:49] LABS: Alanine Aminotransferase 21 IU/L (<35); Albumin 4.2 g/dL (3.5-5.0); Albumin Globulin Ratio 1.5 (1.0-2.8); Alkaline Phosphatase 62 U/L (38-126); Aspartate Aminotransferase 29 IU/L (14-36); BUN Creatinine Ratio 21.6 (6-22); Bilirubin Total 0.4 mg/dL (0.2-1.3); Blood Urea Nitrogen 19 mg/dL (7-17); Calcium 9.7 mg/dL (8.4-10.2); Carbon Dioxide 31 mmol/L (22-32); Chloride 106 mmol/L (98-107); Cholesterol 191 mg/dL (140-199); Estimated Glomerular Filt Rate > 60.0 mL/min (>60); Globulin 2.8 g/dL (1.7-4.1); Glucose 85 mg/dL (80-110); HDL Cholesterol 56 mg/dL (40-60); HEMOLYSIS < 15 (0-50); LDL Cholesterol Calculated 108 mg/dL (<100); Potassium 4.8 mmol/L (3.4-5.1); Sodium 141 mmol/L (137-145); Triglycerides 135 mg/dL (35-150)
[2021-01-25 10:19] LABS: Thyroid Stimulating Hormone 6.04 uIU/mL (0.47-4.68)
== END ==
PROVIDERS: PCP Family Medicine; Referring Provider Nurse Practitioner Acute Care; Visit Provider Nurse Practitioner Acute Care
DX: R00.2 Palpitations (principal); E78.5 Hyperlipidemia, unspecified
CPT/HCPCS: 36415; 80053; 80061; 84443; 85025

== ENCOUNTER → 2021-09-24 07:33 | Outpatient (CLI) | payer MEDICARE, OTHER, SELFPAY ==
[2021-09-24 09:14] LABS: Creatinine Urine Random 67.9 mg/dL
[2021-09-24 09:15] LABS: Cholesterol 165 mg/dL (140-199); HDL Cholesterol 57 mg/dL (40-60); LDL Cholesterol Calculated 92 mg/dL (<100); Triglycerides 78 mg/dL (35-150)
[2021-09-24 09:20] LABS: Microalbumi Creatinin Ratio Ur 10.3 ug/mg CR (<30); Microalbumin Urine Random 0.7 mg/dL (0-1.6)
[2021-09-24 09:44] LABS: TSH w/ Reflex to FT4 3.01 uIU/mL (0.47-4.68)
== END ==
PROVIDERS: PCP Family Medicine; Referring Provider Family Medicine; Visit Provider Family Medicine
DX: E03.9 Hypothyroidism, unspecified (principal); E78.2 Mixed hyperlipidemia; I10 Essential (primary) hypertension
CPT/HCPCS: 36415; 80061; 82043; 82570; 84443

== ENCOUNTER → 2021-09-30 15:10 | Outpatient (CLI) | payer MEDICARE, OTHER, SELFPAY ==
--- NOTE | 2021-09-30 15:13 | DI.MG.S_ITS ---
BILATERAL DIGITAL SCREENING MAMMOGRAM 3D/2D WITH CAD: 09/30/2021 CLINICAL: Routine screening. Family history of breast cancer. Comparison is made to exams dated: 11/03/2018 mammogram, 10/22/2016 mammogram, and 10/22/2015 mammogram - [facility]. The tissue of both breasts is extremely dense, which lowers the sensitivity of mammography. Current study was also evaluated with a Computer Aided Detection (CAD) system. No significant masses, calcifications, or other findings are seen in either breast. There has been no significant interval change. IMPRESSION: NEGATIVE There is no mammographic evidence of malignancy. A 1 year screening mammogram is recommended. This exam was interpreted at Station ID: [id number]. NOTE: For mammograms, a report in lay terms will be sent to the patient. Approximately 15% of breast malignancies will not be visualized mammographically. In the management of a palpable breast mass, a negative mammogram must not discourage biopsy of a clinically suspicious lesion. Electronically Signed By: Cecilio junior/jonathan:10/01/2021 08:20:28 letter sent: Normal Exam ACR BI-RADS Category 1: Negative [id number]
== END ==
PROVIDERS: PCP Family Medicine; Referring Provider Family Medicine; Visit Provider Family Medicine
DX: Z12.31 Encounter for screening mammogram for malignant neoplasm of breast (principal); Z80.3 Family history of malignant neoplasm of breast
CPT/HCPCS: 77063; 77067

== ENCOUNTER → 2022-01-20 09:34 | Outpatient (CLI) | payer MEDICARE, OTHER, SELFPAY ==
[2022-01-20 14:02] LABS: TSH w/ Reflex to FT4 3.25 uIU/mL (0.47-4.68)
== END ==
PROVIDERS: PCP Family Medicine; Referring Provider Family Medicine; Visit Provider Family Medicine
DX: E03.9 Hypothyroidism, unspecified (principal)
CPT/HCPCS: 36415; 84443

== ENCOUNTER → 2023-01-14 08:33 | Outpatient (CLI) | payer MEDICARE, OTHER, SELFPAY ==
[2023-01-14 10:16] LABS: Microalbumi Creatinin Ratio Ur 7.3 ug/mg CR (<30); Microalbumin Urine Random 1.2 mg/dL (0-1.6)
[2023-01-14 10:25] LABS: Alanine Aminotransferase 25 IU/L (<35); Albumin 4.2 g/dL (3.5-5.0); Albumin Globulin Ratio 1.6 (1.0-2.8); Alkaline Phosphatase 60 U/L (38-126); Aspartate Aminotransferase 27 IU/L (14-36); BUN Creatinine Ratio 22.9 (6-22); Bilirubin Total 0.5 mg/dL (0.2-1.3); Blood Urea Nitrogen 19 mg/dL (7-17); Calcium 9.6 mg/dL (8.4-10.2); Carbon Dioxide 27 mmol/L (22-32); Chloride 106 mmol/L (98-107); Cholesterol 173 mg/dL (140-199); Estimated Glomerular Filt Rate > 60 mL/min (>60); Globulin 2.6 g/dL (1.7-4.1); Glucose 87 mg/dL (80-110); HDL Cholesterol 66 mg/dL (40-60); HEMOLYSIS < 15 (0-50); LDL Cholesterol Calculated 88 mg/dL (<100); Potassium 4.4 mmol/L (3.4-5.1); Sodium 141 mmol/L (137-145); Total Protein 6.8 g/dL (6.3-8.2); Triglycerides 97 mg/dL (35-150)
[2023-01-14 10:56] LABS: Thyroid Stimulating Hormone 0.576 uIU/mL (0.47-4.68)
== END ==
PROVIDERS: PCP Family Medicine; Referring Provider Family Medicine; Visit Provider Family Medicine
DX: E03.9 Hypothyroidism, unspecified (principal); I10 Essential (primary) hypertension; Z00.00 Encounter for general adult medical examination without abnormal findings; E78.2 Mixed hyperlipidemia
CPT/HCPCS: 36415; 80053; 80061; 82043; 82570; 84443